=== PATIENT | male | born 1955 | race Caucasian/White ===

== ENCOUNTER 2024-08-25 16:51 | Emergency (ER) | payer MEDICARE, OTHER, SELFPAY ==
[2024-08-25 16:58] VITALS: BP 151/86
[2024-08-25 18:06] VITALS: BMI 37.7
--- NOTE | 2024-08-25 19:34 | ED.GENMED ---
History of Present Illness
General
Chief Complaint: Head Injury
Source: patient
Exam Limitations: none
Time Seen by Provider: 08/25/24 19:16
History of Present Illness
History of Present Illness:
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 No loss of conscious but he did get dazed from the injury. No vision change. No
neck pain. He does have discomfort when he leans his jaw. No other complaints at this time
Phy Exam
Physical Exam
Physical Exam:
General: Well-appearing male no acute respiratory distress
HEENT: Normocephalic atraumatic mild soft tissue swelling above the right ear pupils equal round react light TMs normal
Neurologic: Alert and oriented conversing appropriately
Musculoskeletal exam: Spine nontender
Course
Orders/Labs/Results
Orders:
Orders
08/25/24 17:[address] [CT Head W/o Iv Contrast] Urgent
Comment:
Reason For Exam: head injury on xarelto
Vital Signs
Initial and Last Documented VS:
Initial Vital Signs
Temp Pulse Resp BP Pulse Ox
98 F 105 16 151/86 98
08/25/24 16:58 08/25/24 16:58 08/25/24 16:58 08/25/24 16:58 08/25/24 16:58
Last Documented Vital Signs
Temp Pulse Resp BP Pulse Ox
98 F 105 16 151/86 98
08/25/24 16:58 08/25/24 16:58 08/25/24 16:58 08/25/24 16:58 08/25/24 16:58
MDM/Problems Addressed
Differential Diagnosis Includes:
Hit in the head by a baseball umpiring a baseball game today. On Xarelto. Concern for skull fracture versus intracranial hemorrhage versus concussion versus contusion
Head CT was ordered and it was negative for acute intracranial finding. I suspect underlying contusion. Concussion precautions given. Stable for the
*Critical Care Note
Total Time (30-74mins, 75-104mins- exclusive of procedures): Not Applicable
ED Attending Note
-
Portions of this chart may have been created with voice recognition software.� Occasional wrong word or��sound alike� substitutions may have occurred due to the inherent limitations of voice recognition software.
Discharge Plan
Departure
Patient Disposition: Home (Routine Discharge)
Date of Disposition: 08/25/24
Time of Disposition: 19:36
Patient with high blood pressure during this ER visit?: No
Discharge Problem:
Contusion
Instructions: Concussion, Adult (DC), Contusion (DC)
Referrals:
Sixto French MD [Family Provider]
Activity Restrictions/Additional Instructions:
Rest. You may apply ice to the area. You may take Tylenol for pain. Return here for increasing headache vomiting or other concerning finding. Follow-up with family doctor otherwise if needed
Interventions
Interventions:
*Risk Screen - Suicide Last Done: 08/25/24 17:02
*General Assessment Last Done: 08/25/24 18:06
*Neglect/Abuse Screening Last Done: 08/25/24 17:02
*ED- Fall Risk Assessment Last Done: 08/25/24 18:06
*ED COVID-19 Vaccine History Last Done: 08/25/24 18:06
ED- Neurological Assessment Last Done: 08/25/24 18:06
Discharge Date and Time
Print Language: UKRAIN[place]
== END 2024-08-25 20:03 | disposition home or self-care (01) ==
LOC: EMR 16:51
PROVIDERS: EMERGENCY PHYSICIAN Student in an Organized Health Care Education/Training Program; FAMILY PHYSICIAN Family Medicine
DX: S00.83XA Contusion of other part of head, initial encounter (principal); W21.03XA Struck by baseball, initial encounter; Y93.81 Activity, refereeing a sports activity; Y92.320 Baseball field as the place of occurrence of the external cause; Z79.02 Long term (current) use of antithrombotics/antiplatelets
CPT/HCPCS: 99284; 70450